=== PATIENT | female | born 1960 | race Caucasian/White ===

== ENCOUNTER 2020-07-07 08:54 | Outpatient (REF) | payer OTHER, SELFPAY ==
[2020-07-11 06:57] LABS: HPV mRNA E6/E7 rflx Not Detected (Not Detected)
== END 2020-07-07 08:55 | disposition home or self-care (01) ==
LOC: HO.LAB 08:54
PROVIDERS: Visit Provider Obstetrics & Gynecology
DX: Z01.419 Encounter for gynecological examination (general) (routine) without abnormal findings (principal); N84.1 Polyp of cervix uteri
CPT/HCPCS: 36415; 87624; 88142

== ENCOUNTER 2020-07-07 20:11 | Emergency (ER) | payer OTHER, SELFPAY ==
[2020-07-07 21:05] VITALS: BP 174/98; PULSE 84; RESP 18; TEMP 36.9; O2SAT 98; BMI 29.0
[2020-07-07 21:17] LABS: Eosinophils Absolute Auto 0.2 X10*3/uL (0.0-0.4); Eosinophils Percent Auto 1.6 % (0-4); Imm Gran Abs Auto 0.02 X10*3/uL (0.00-0.03); Imm Gran Pct Auto 0.2 % (0.0-0.4); MANUAL DIFF FLAG SCAN; Mean Corpuscular Hemoglobin 31.2 pg (27.0-33.0); Mean Corpuscular Volume 92.8 fL (80-98); PLT CLUMP 1; Red Cell Distribution Width 12.5 % (11.0-16.0); SCAN SMEAR FLAG 1
[2020-07-07 21:19] LABS: Basophils Absolute Auto 0.1 X10*3/uL (0.0-0.2); Basophils Percent Auto 1.3 % (0-2); Hemoglobin 13.8 g/dl (12.0-16.0); Lymphocytes Absolute Auto 3.2 X10*3/uL (1.2-4.9); Lymphocytes Percent Auto 29.9 % (20-40); Mean Corpuscular HGB Conc 33.7 g/dl (31.0-35.0); Monocytes Absolute Auto 0.8 X10*3/uL (0.1-1.2); Monocytes Percent Auto 7.8 % (2-11); Neutrophils Absolute Auto 6.2 X10*3/uL (2.0-8.3); Neutrophils Percent Auto 59.2 % (45-73); Red Blood Count 4.42 X10*6/uL (4.20-5.50); White Blood Count 10.5 X10*3/uL (4.8-10.8)
[2020-07-07 21:32] LABS: Glucose Urine UA NEG (NEG); Leukocyte Esterase Urine NEG (NEG); Nitrite Urine NEG (NEG); PH 5.5 (5.0-8.0); Specific Gravity - Urine 1.025 (1.005-1.025); Urine Blood 2+ (NEG); Urine Ketones NEG (NEG); Urine Protein NEG (NEG-TRACE)
[2020-07-07 21:34] LABS: Appearance Urine CLEAR; Color Urine YELLOW
[2020-07-07 21:42] LABS: Lipase 22 U/L (8-78)
[2020-07-07 21:42] LABS: Bacteria Urine TRACE /LPF; Squamous Epithelial Cell Urine TRACE /LPF; WBC Urine 0-2 /HPF (0-4)
[2020-07-07 22:18] LABS: SLIDE REVIEW VERIFIED
[2020-07-07 23:34] VITALS: BP 173/75; PULSE 84; RESP 16; O2SAT 98
--- NOTE | 2020-07-08 02:02 | CT_ITS ---
EXAMINATION: CT ABDOMEN AND PELVIS WITHOUT CONTRAST CLINICAL INFORMATION: Right lower/right flank pain COMPARISON: None TECHNIQUE: Multidetector volumetric imaging was performed from the superior aspect of the liver through the pubic symphysis. Sagittal and coronal reformatted images were obtained on the technologist's workstation. This CT examination was performed using dose optimization techniques as appropriate, variously including the following: *Automated exposure control *Adjustment of mA and/or kV according to patient size (this includes techniques or standardized protocols for targeted exams where dose is matched to indication/reason for exam; i.e. extremities or head) *Use of iterative reconstruction technique DLP: 738 mGy-cm FINDINGS: LUNG BASES: Subsegmental atelectasis noted in the lingula. LIVER, GALLBLADDER, AND BILIARY TREE: The liver is normal in size, shape, and attenuation. No focal hepatic lesion or biliary ductal dilatation is present. The gallbladder is unremarkable with no evidence of radiopaque gallstones, gallbladder wall thickening, or obvious pericholecystic inflammatory changes. PANCREAS: Unremarkable. SPLEEN: Unremarkable. ADRENAL GLANDS: Unremarkable. KIDNEYS AND URETERS: The kidneys are normal in size, shape, and attenuation. No hydronephrosis, hydroureter, or calculi seen. No perinephric stranding. BLADDER: Unremarkable. GASTROINTESTINAL TRACT: No evidence of bowel obstruction. There is prominent submucosal fat in the distal small bowel including the terminal ileum, which can be seen as sequelae of prior inflammation. No convincing findings of active bowel inflammation. Appendix appears collapsed. No free fluid or free air is seen. ABDOMINAL WALL: No significant hernia is appreciated. LYMPH NODES: Normal. VASCULAR: Unremarkable. PELVIC VISCERA: Unremarkable. OSSEOUS STRUCTURES: Degenerative changes are noted in the spine, including prominent facet arthropathy of the lumbar spine. CT/CT abdomen pelvis wo con IMPRESSION: 1. No acute findings identified in the abdomen/pelvis. 2. Prominent submucosal fat of the distal small bowel including the terminal ileum, which can be seen as sequelae of prior inflammation.
--- NOTE | 2020-07-08 02:04 | ED_ITS ---
HPI - Abdominal Pain General Chief Complaint: Abdominal Pain Stated Complaint: pelvic and flank pain Time Seen by Provider: 07/08/20 02:01 Source: patient Mode of arrival: ambulatory Limitations: no limitations History of Present Illness HPI narrative: 60-year-old female presented with 2 days of intermittent right a bdominal pain/right flank pain, pain progressively getting worse and more less more constant, pain is localized to the right lower area/right flank area, no other associated symptoms in particular no nausea, no vomiting, no fever, no chills, no dysuria, no urinary frequency, no diarrhea, no vaginal discharge or bleed. Patient describes pain as mild (5/10), nothing makes the pain worse or better, p atient never had that pain before. Related Data Allergies Allergy/AdvReac Type Severity Reaction Status Date / Time No Known Allergies Allergy Verified 07/07/20 09:30 Review of Systems Review of Systems All other systems are reviewed and are negative Constitutional: Reports as per HPI and Reports no additional constitutional complaints Eyes: Reports as per HPI and Reports no additional eye complaints Reports system reviewed and no additional complaints, except as documented Cardiovascular: Reports as per HPI and Reports no additional cardiovascular complaints Respiratory: Reports as per HPI and Reports no additional respiratory complaints Gastrointestinal: Reports as per HPI and Reports no additional gastrointestinal complaints Genitourinary: Reports no additional female genitourinary complaints Musculoskeletal: Reports no additional musculoskeletal complaints Skin/Breast: Reports system reviewed and no additional complaints, except as docu Psychiatric: Reports no additional psychiatric complaints Endocrine: Reports no additional endocrine complaints Hematologic/Lymphatic: Reports no additional hematologic/lymphatic complaints Allergic/Immunologic: Reports no additional allergic/immunologic complaints Reports system reviewed and no additional complaints, except as documented and Reports Abnormal speech present Physical Exam Vital Signs: Vital Signs: Last Vital Signs Temp 98.4 F 07/07/20 21:05 Pulse 84 07/07/20 23:34 Resp 16 07/07/20 23:34 BP 173/75 H 07/07/20 23:34 Pulse Ox 98 07/07/20 23:34 Body Mass Index 29.0 Vital signs have been reviewed as normal and appeared to be correct. Blood pressure in the high range. Heart rate normal. Respiration rate normal. Temperature normal. Oxygen saturation normal. Appearance: Alert. Oriented X3. No acute distress. Head: Normal external exam. Normocephalic. Atraumatic. No Ca signs noted. No raccoon eyes noted Eyes: PERRLA. EOMI. Conjunctiva and sclera normal. Eyelids normal. ENT: EAC normal. TM's Normal. Pharynx normal. Uvula midline. Moist mucous membranes. No trismus noted. No drooling noted. No muffled voice noted. Neck: Normal inspection. Neck supple. FROM. No adenopathy. Thyroid Normal. No meningeal signs. No neck mass noted. CVS: Normal heart rate and rhythm. Heart sound normal. No murmurs noted. Pulses normal throughout. Respiratory: No respiratory distress. Painless inspiration. Breath sounds normal. No wheezes/rales/rhonchi noted. Chest nontender. No accessory muscle usage noted or decreased air movement noted. Abdomen: Soft, mild right lower quadrant abdominal tenderness, no rebound, no guarding.. Bowel sounds normal in all 4 quadrants. No distention noted. No organomegaly noted. No visible injury noted. Back: Right CVA mild tenderness. Full range of motion noted. Skin: Skin warm and dry. Normal skin color. Normal skin turgor. No rashes/lesions/lacerations noted. Extremities: No lower extremity edema. Extremities exhibit normal range of motion. Extremities nontender. Neuro: Oriented X 3. No motor deficit. No sensory deficit. Reflexes normal. Course Course Course Narrative: Assessment and plan. 60-year-old female presented with few days of right-sided/slight flank pain, patient had a CT of the abdomen pelvis which showed no acute intra-abdominal pathology to explain patient's symptoms. Patient was instructed to drink plenty of fluids, and take NSAIDs p.r.n. pain. And seek medical attention if symptoms gotten worse otherwise follow-up with her PCP. MDM - Abdominal Pain Lab Data Result diagrams: 07/07/20 21:09 Labs: Lab Results 07/07/20 07/07/20 07/07/20 Range/Units 21:09 21:09 21:09 WBC 10.5 (4.8-10.8) X10*3/uL RBC 4.42 (4.20-5.50) X10*6/uL Hgb 13.8 (12.0-16.0) g/dl Hct 41.0 (37-47) % MCV 92.8 (80-98) fL MCH 31.2 (27.0-33.0) pg MCHC 33.7 (31.0-35.0) g/dl RDW 12.5 (11.0-16.0) % Plt Count Not Reportable MPV Not Reportable Immature Gran % (Auto) 0.2 (0.0-0.4) % Neut % (Auto) 59.2 (45-73) % Lymph % (Auto) 29.9 (20-40) % [place] % (Auto) 7.8 (2-11) % Eos % (Auto) 1.6 (0-4) % Baso % (Auto) 1.3 (0-2) % Lymph # (Auto) 3.2 (1.2-4.9) X10*3/uL [place] # (Auto) 0.8 (0.1-1.2) X10*3/uL Eos # (Auto) 0.2 (0.0-0.4) X10*3/uL Baso # (Auto) 0.1 (0.0-0.2) X10*3/uL Abs Immat Gran (auto) 0.02 (0.00-0.03) X10*3/uL Absolute Neuts (auto) 6.2 (2.0-8.3) X10*3/uL Absolute Nucleated RBC 0.000 (0.0-0.012) X10*3/uL Nucleated RBC % (auto) 0.0 (0.0-0.2) /100WBC Smear Tech's Comments VERIFIED Hold Blue Top SEE NOTE Lipase 22 (8-78) U/L Urine Color Urine Appearance Urine pH (5.0-8.0) Ur Specific [place] (1.005-1.025) Urine Protein (NEG-TRACE) MG/DL Urine Glucose (UA) (NEG) MG/DL Urine Ketones (NEG) MG/DL Urine Blood (NEG) Urine Nitrite (NEG) Ur Leukocyte Esterase (NEG) Urine RBC (0) /HPF Urine WBC (0-4) /HPF Ur Squamous Epith Cells /LPF Urine Bacteria /LPF 07/07/20 Range/Units 21:19 WBC (4.8-10.8) X10*3/uL RBC (4.20-5.50) X10*6/uL Hgb (12.0-16.0) g/dl Hct (37-47) % MCV (80-98) fL MCH (27.0-33.0) pg MCHC (31.0-35.0) g/dl RDW (11.0-16.0) % Plt Count MPV Immature Gran % (Auto) (0.0-0.4) % Neut % (Auto) (45-73) % Lymph % (Auto) (20-40) % [place] % (Auto) (2-11) % Eos % (Auto) (0-4) % Baso % (Auto) (0-2) % Lymph # (Auto) (1.2-4.9) X10*3/uL [place] # (Auto) (0.1-1.2) X10*3/uL Eos # (Auto) (0.0-0.4) X10*3/uL Baso # (Auto) (0.0-0.2) X10*3/uL Abs Immat Gran (auto) (0.00-0.03) X10*3/uL Absolute Neuts (auto) (2.0-8.3) X10*3/uL Absolute Nucleated RBC (0.0-0.012) X10*3/uL Nucleated RBC % (auto) (0.0-0.2) /100WBC Smear Tech's Comments Hold Blue Top Lipase (8-78) U/L Urine Color YELLOW Urine Appearance CLEAR Urine pH 5.5 (5.0-8.0) Ur Specific [place] 1.025 (1.005-1.025) Urine Protein NEG (NEG-TRACE) MG/DL Urine Glucose (UA) NEG (NEG) MG/DL Urine Ketones NEG (NEG) MG/DL Urine Blood 2+ H (NEG) Urine Nitrite NEG (NEG) Ur Leukocyte Esterase NEG (NEG) Urine RBC 1-4 (0) /HPF Urine WBC 0-2 (0-4) /HPF Ur Squamous Epith Cells TRACE /LPF Urine Bacteria TRACE /LPF Imaging Data CT scan - abdomen: Radiologist's impression: 1. No acute findings identified in the abdomen /pelvis. 2. Prominent submucosal fat of the distal small bowel including the terminal ileum, which can be seen as sequelae of prior inflammation. Discharge Plan Discharge Clinical Impression: Abdominal pain Qualifiers: Abdominal location: unspecified location Qualified Code(s): R10.9 - Unspecified abdominal pain Patient Disposition: Home, Self-Care Instructions: Abdominal Pain (ED) Referrals: Physician,None [Primary Care Provider] - 2 days PMFSH Past Medical History Surgical History H/O knee surgery S/P LEEP (status post loop electrosurgical excision procedure) Family History Family History Mother Alzheimer disease Social History Social History Alcohol intake: never Smoking Status: Former smoker Advance Directives: No Advance Directives Information Provided: No
[2020-07-08] MEDS: 0.9 % Sodium Chloride 1,000 ML 999 ML IVCONT (02:13)
[2020-07-08] MEDS: Ketorolac Tromethamine 15 MG/ML VIAL IV (02:13)
--- NOTE | 2020-07-08 02:15 | PC.NURSE ---
Pt found sitting upright in bed, CAOx4, speaking full sentences, reporting 7/10 pain to RLQ radiating into back for approx 24-48 hours, reports one episode of diarrhea this morning, denies N/V/fever. Pt also denies urinary symptoms. IV established, IVF hung, pt medicated with Toradol for 7/10 pain to RLQ. Aware of plan to CT abdomen, call sanchez within reach, continue to monitor.
--- NOTE | 2020-07-08 03:17 | PC.NURSE ---
Pt returns from CT, reports some relief of pain, states pain decreased to a 4/10. Awaiting CT results.
--- NOTE | 2020-07-08 04:18 | PC.NURSE ---
DC VS: 130/74, HR 76, RR 16, RA SAT 96% Pt provided with DC paperwork, IV removed. Pt calling for a ride home.
== END 2020-07-08 04:18 | disposition home or self-care (01) ==
PROVIDERS: Emergency Medicine Emergency Medical Services; Emergency Provider Emergency Medicine
DX: R10.9 Unspecified abdominal pain (principal)
CPT/HCPCS: 36415; 74176; 81001; 83690; 85025; 96361; 96374; 99283; 99284; J1885

== ENCOUNTER → 2020-08-05 08:48 | Outpatient (BNVA) | payer OTHER, SELFPAY | PROVIDERS: Visit Provider Obstetrics & Gynecology ==

== ENCOUNTER 2020-08-08 12:21 | Day surgery (SDC) | payer OTHER, SELFPAY ==
[2020-08-04 12:42] VITALS: BMI 29.0
--- NOTE | 2020-08-06 12:33 | HO.ANESPROP2 ---
Documented by User: Martina Barth 08/06/20 12:35 HPI - Anesthesia Eval Consult details Narrative: 60yo F for D&C Hysteroscopy PMFSH Active Problems Active Problems: All Active Problems (Updated 08/04/20 @ 12:41 by Peggy Duncan) Well woman exam (Acute) Cervical polyp (Acute) Past Medical History Medical History PONV (postoperative nausea and vomiting) Family History Family History Mother Alzheimer disease Surgical History Surgical History Hx of arthroscopy of knee S/P LEEP (status post loop electrosurgical excision procedure) Social History Social History Alcohol intake: never Smoking Status: Former smoker Smoking Quit Date: 06/2019 Use of substances other than those prescribed or required for medical reasons: No Advance Directives: No Advance Directives Information Provided: No Advance Directives on File: No Meds Allergies Allergy/AdvReac Type Severity Reaction Status Date / Time No Known Allergies Allergy Verified 08/04/20 12:41 Exam Exam Date and Time: August 06, 2020 1233 Height,Weight and Vital Signs: Height 5 ft 6 in Weight 81.647 kg Pertinent Lab Results Pertinent Lab Results: Laboratory Tests 07/07/20 21:09 WBC 10.5 Hgb 13.8 Hct 41.0 Plt Count Not Reportable Assessment and Plan Assessment Anesthesia Assessment: Chart Reviewed Documented by User: Vinay Perla 08/08/20 14:54 PMFSH Past Medical History Medical History PONV (postoperative nausea and vomiting) Family History Family History Mother Alzheimer disease Surgical History Surgical History Hx of arthroscopy of knee S/P LEEP (status post loop electrosurgical excision procedure) Social History Social History Alcohol intake: never Smoking Status: Former smoker Smoking Quit Date: 06/2019 Use of substances other than those prescribed or required for medical reasons: No Advance Directives: No Advance Directives Information Provided: No Advance Directives on File: No Meds Allergies Allergy/AdvReac Type Severity Reaction Status Date / Time No Known Allergies Allergy Verified 08/04/20 12:41 Exam Airway Mallampati Class: II TM Dist: >3cm Neck ROM: Full Denture: Upper and Lower Heart: [id number] Lungs: cta b/l Assessment and Plan Assessment Anesthesia Assessment: Anesthesia Plan Discussed, PAT Visit and Chart Reviewed Final Anesthetic Review NPO: Yes ASA Class: II Final Preanesthetic Review: No Changes in Pt Med Stat, Meds/Allgs Chart Reviewed, Consent Obtained/Reviewed and Anes Risks/Benef Reviewed Patient Risk: Low Procedure Risk: Low Assessment/Block/Sedation in SS: Assess/Block/Sedation-SS Anesthetic Plan Anesthetic Plan: GA and Agree w/ Assess. and Plan Disposition: Standard PACU
[2020-08-08 13:25] VITALS: BP 136/76; PULSE 87; RESP 16; TEMP 36.4; O2SAT 99
--- NOTE | 2020-08-08 13:34 | MHC.SHP ---
Pre-Procedural Eval Section A The patient is an INPATIENT: No Changes since office visit: No Cold of Flu in the past 2 weeks, No New Medical Problems, No Changes in Medication and No Patient answered all questions The History & Physical has been completed within 30 days and I have reviewed it.: Yes Section B Chief Complaint: Polyp of Cervix Allergies: Allergies Allergy/AdvReac Type Severity Reaction Status Date / Time No Known Allergies Allergy Verified 08/04/20 12:41 Plan Diagnosis/Plan: Unchanged I have reviewed the history and physical and performed a pertinent physical examination on my patient. No changes have occurred unless specified.
[2020-08-08] MEDS: Scopolamine 1.5 MG PATCH.TD.3 TRANSDERMA (13:51)
[2020-08-08] MEDS: Lactated Ringers 1,000 ML 100 ML IVCONT (14:09)
[2020-08-08 15:25] VITALS: BP 129/80; PULSE 75; RESP 16; O2SAT 96
--- NOTE | 2020-08-08 15:25 | PM.OP ---
Brief Operative Note Date of Service: 08/08/20 Pre-op diagnosis: Endocervical polyp Post-op diagnosis: same Procedure: Hysteroscopy D&C, Polypectomy Surgeon: Jai Wilkins MD Anesthesia: MAC Estimated blood loss (mL): 0 Pathology: other (Endometrial Scrapping. Polyp) Condition: stable Disposition: PACU
--- NOTE | 2020-08-08 15:27 | W.PM.OPN ---
Operative Note Operative Note Date of Service: 08/08/20 Narrative: Preop Diagnosis: Endocervical polyp Operation: Diagnostic Hysteroscopy, Dilataion & Curettage and polypectomy Post Op Diagnosis: Endocervical Polyp QBL: Minimal Anesthesia: MAC Surgeon: Jai Wilkins MD Learning Support Services Director: None Complication: None Pathology: Endometrial Scrapings, endocervical polyp Complication: None Pathology: Endometrial Scrapings, Endometrial polyp Procedure: The patient was put in the dorsal lithotomy position, scrubbed, and draped in the usual manner. A sterile speculum was inserted in the patient's vagina. The anterior lip of the cervix was grasped with a single tooth tenaculum. The cervix was dilated up to 5 mm, then the scope was inserted in the patient's uterus. Inspection revealed endocervical polyp at the ectocervix. Using LEEP electrode endocervical polyp was excised with partial endocervix ; this was done with no complications. At the end of the procedure, all instruments were taken out of the patient uterine and vaginal cavity. The single tooth tenaculum was removed and homeostasis was assured using pressure,. The patient tolerated the procedure well and was transferred to the PACU in a stable condition.
[2020-08-08 15:30] VITALS: BP 138/80; PULSE 74; RESP 16; O2SAT 96
[2020-08-08 15:35] VITALS: BP 136/73; PULSE 76; RESP 16; O2SAT 96
[2020-08-08 15:40] VITALS: BP 138/77; PULSE 74; RESP 16; O2SAT 97
[2020-08-08 15:55] VITALS: BP 142/60; PULSE 77; RESP 16; TEMP 36.1; O2SAT 97
== END 2020-08-08 17:00 ==
LOC: HO.SSS 12:21
PROVIDERS: Visit Provider Obstetrics & Gynecology
PROC: (CPT 58120; principal; 2020-08-08 15:10)
DX: N84.1 Polyp of cervix uteri (principal); Z87.891 Personal history of nicotine dependence
CPT/HCPCS: 58558; 88305; J1100; J1885; J2250; J2405; J3010

== ENCOUNTER → 2020-08-20 10:22 | Outpatient (BNVA) | payer OTHER, SELFPAY | PROVIDERS: Visit Provider Obstetrics & Gynecology ==

== ENCOUNTER → 2020-08-25 08:33 | Outpatient (BNVA) | payer OTHER, SELFPAY | PROVIDERS: Visit Provider Physician Assistant ==

== ENCOUNTER 2020-09-25 09:34 | Day surgery (SDC) | payer OTHER, SELFPAY ==
[2020-09-19 13:46] VITALS: BMI 29.0
--- NOTE | 2020-09-24 11:01 | HO.ANESPROP2 ---
HPI - Anesthesia Eval Consult details Narrative: 60yo F for Colonoscopy PMFSH Active Problems Active Problems: All Active Problems (Updated 08/25/20 @ 08:58 by Jenny Torres PA-C) Well woman exam (Acute) Cervical polyp (Acute) Encounter for screening colonoscopy (Acute) Past Medical History Medical History PONV (postoperative nausea and vomiting) Family History Family History Mother Alzheimer disease Surgical History Surgical History (Updated 09/19/20 @ 13:44 by Lanie Blankenship) Hx of arthroscopy of knee Hx of dilation and curettage S/P LEEP (status post loop electrosurgical excision procedure) Social History Social History (Updated 09/19/20 @ 13:45 by Lanie Blankenship) Household Members: Children Alcohol intake: never Smoking Status: Former smoker Smoking Quit Date: 2019 Use of substances other than those prescribed or required for medical reasons: No Have you been hit, kicked, punched, or otherwise hurt by someone within the past year? 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
[2020-09-25 10:03] VITALS: BP 150/82; PULSE 18; RESP 18; TEMP 35.9; O2SAT 99
[2020-09-25] MEDS: Lactated Ringers 1,000 ML 100 ML IVCONT (10:24)
--- NOTE | 2020-09-25 10:35 | P.OP_ITS ---
Operative Note Operative Note Date of Service: 09/25/20 Narrative: Pre-op diagnosis: Colon cancer screening Post-op diagnosis: other (Diverticulosis, hemorrhoids, submucosal nodules Transverse colon) Procedure: COLONOSCOPY TILL CECUM WITH BIOPSIES Consent: Indications for the procedure and potential complications of bleeding, perforation, reaction to medications and missed diagnosis were discussed with the patient and informed consent was obtained. Instrument: Olympus PCF H 190 L variable stiffness pediatric colonoscope Monitoring: Vital signs and clinical assessment, intermittent blood pressure monitoring, continuous EKG monitoring, Pulse oximetry and Carbon Dioxide monitoring were done throughout the procedure. Colon withdrawl time was 21 minutes. Procedure: The patient was placed in the left lateral decubitis position and pre-procedure medications were administered. After a digital rectal examination of the ano-rectum, the video colonoscope was inserted into the rectum and advanced through the colon to the cecum. The colonoscope was slowly withdrawn in a retrograde panoramic fashion and the colon mucosa was carefully examined including a retroflexed view of the rectum. Findings and interventions are described below. Procedure Difficulty: Colon was long and tortuous and there was Rican these formation. Patient was placed in the supine position and LLQ pressure was applied to intubate the ascending colon Findings: Terminal Ileum: Not evaluated Cecum: ? 7-8 mm polyp versus fold at the appendicular orifice - biopsies were obtained Ascending Colon: Normal Transverse Colon: A 5 cms yellowish benign appearing nodule in the distal transverse colon at 60 cm - multiple biopsies were obtained. Second similar appearing 2 cms nodule at 55 cm. Descending Colon: Moderate diverticulosis Sigmoid Colon: Severe diverticulosis with luminal narrowing Rectum: Normal Ano-rectum: Moderate internal hemorrhoids Colon preparation: Good after copious irrigation Impression and Post Procedure Diagnosis: Colonoscopy Findings: A 5 cms yellowish benign appearing nodule in the distal transverse colon at 60 cm - multiple biopsies were obtained. Second similar appearing 2 cms nodule at 55 cm. Likely submucosal lipomas No polyps were detected Moderate to severe diverticulosis seen in the left colon Moderate hemorrhoids on retroflexed exam. Plan: Await pathology results. If biopsies from submucosal nodule are normal, consider further evaluation with a CT scan. A letter will be sent with biopsy results. Repeat Colonoscopy interval based on path results - in 5 years. Above findings were reviewed with the patient and diverticulosis handout was given in the discharge area Surgeon: Cindy Toledo MD Anesthesia: MAC (Haily Hutton CRNA) Stockroom Keeper: Ann Lopez Estimated blood loss (mL): 0 Pathology: other (A- CECAL BIOPSIES- R/O POLYP B- MUCOSAL MASS 60CMS R/O SUBMUCOSAL LIPOMA) Condition: stable Disposition: PACU
--- NOTE | 2020-09-25 10:35 | MHC.SHP ---
Pre-Procedural Eval Section A The History & Physical has been completed within 30 days and I have reviewed it.: No Section B Chief Complaint: Screening Details of Present Illness: Colon cancer screening Relevant Family History (Specify if Yes): No Relevant Social History: Tobacco Use (quitted 1 yr ago) Present Medications: see Short Stay Collaborative assessment Medical History: Significant History (Postoperative nausea and vomiting,) History of Previous Operations: Relevant previous surgery/procedure and date(s) (Hx of arthroscopy of knee Hx of dilation and curettage S/P LEEP (status post loop electrosurgical excision procedure)) Allergies: Allergies Allergy/AdvReac Type Severity Reaction Status Date / Time No Known Allergies Allergy Verified 08/25/20 08:33 Review of Systems Sugical H&P ROS: Negative: Constitution, Cardiovascular, Respiratory and Gastrointestinal Exam Surgical H&P Exam: Normal: Heart, Normal: Lungs, Normal: Extremities and Normal: Abdomen Plan Diagnosis/Plan: Unchanged I have reviewed the history and physical and performed a pertinent physical examination on my patient. No changes have occurred unless specified.
[2020-09-25 11:31] VITALS: BP 128/71; PULSE 74; RESP 18; TEMP 37.7; O2SAT 100
[2020-09-25 11:46] VITALS: BP 135/79; PULSE 80; RESP 18; TEMP 37.2; O2SAT 100
== END 2020-09-25 12:26 | disposition home or self-care (01) ==
PROVIDERS: Visit Provider Internal Medicine Gastroenterology
PROC: 0DJD8ZZ Inspection of Lower Intestinal Tract, Via Natural or Artificial Opening Endoscopic (ICD-10-PCS; CPT 45378; principal; 2020-09-25 10:40)
DX: Z12.11 Encounter for screening for malignant neoplasm of colon (principal); K57.30 Diverticulosis of large intestine without perforation or abscess without bleeding; K64.8 Other hemorrhoids; K63.89 Other specified diseases of intestine; Z87.891 Personal history of nicotine dependence
CPT/HCPCS: 45380; 88305

== ENCOUNTER 2020-10-16 15:41 | Emergency (ER) | payer OTHER, SELFPAY ==
--- NOTE | ~2020-10-16 | XR_ITS ---
EXAMINATION: XR HIP, RIGHT CLINICAL INFORMATION: Trauma with right hip pain COMPARISON: CT abdomen pelvis 07/08/2020 TECHNIQUE: 2 views pelvis with 2 additional views right hip . FINDINGS: There is a comminuted fracture involving the superior pubic ramus as well as the inferior pubic ramus on the right that were not present at the time of the 07/08/2020 CT scan. The hip joint is unremarkable without fracture seen. XR/XR hip RT min 2V IMPRESSION: Pubic rami fracture on the right. These could be acute but also could be somewhat subacute occurring sometime between 07/08/2020 and today. Please correlate clinically
[2020-10-16 15:51] VITALS: BP 118/78; PULSE 88; O2SAT 100
[2020-10-16 15:56] VITALS: BP 144/70; PULSE 91; RESP 18; TEMP 36.3; O2SAT 99; BMI 30.7
--- NOTE | 2020-10-16 16:00 | ED.GENADULT ---
HPI - General Adult General Chief complaint: Fall Stated complaint: RT HIP PAIN S/P FALL Time Seen by Provider: 10/16/20 15:58 Source: patient Limitations: no limitations History of Present Illness HPI narrative: Patient complaining of right hip pain. Patient states she was at work and working in a manic and when she fell off to her right landing on her right hip. Patient states pain is 10/10 and she has decreased ability to move her right hip. Patient denies past medical history takes no current medications. Patient states she quit smoking greater than 1 year ago. Patient did not hit her head or CT has no complaints of other pain at this time. Symptoms are moderate. Related Data Previous Rx's Medication Instructions Recorded tramadol 50 mg PO Q8H PRN #20 tab 10/16/20 Allergies Allergy/AdvReac Type Severity Reaction Status Date / Time No Known Allergies Allergy Verified 08/25/20 08:33 Review of Systems Review of Systems: Constitutional : No fever chills. Eyes: No Eye Pain, No Swelling, No Redness, No Foreign Body, No Discharge, No Vision Changes Cardiovascular : No Chest Pain, No SOB Respiratory : No Cough, No Sputum Gastrointestinal : No Nausea, No Vomiting Musculoskeletal : Positive right hip pain Neuro : No Weakness, No Numbness, No Paresthesias, No Loss of Consciousness, No Dizziness, No Headache Psych : No Anxiety/Panic, No Depression, No SI/HI/AH/VH, No Social Issues, Heme/Lymph: No Bruising, No Bleeding,No Lymphadenopathy [facility] Past Medical History Attestation statement: The following information was validated with the patient. 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 Blood pressure normal. Heart rate normal. Respiration rate normal. Temperature normal. Oxygen saturation normal. Appearance: Alert. Oriented X3. No acute distress. Head: Normal external exam. Normocephalic. Atraumatic. No Ca signs noted. No raccoon eyes noted Eyes: PERRLA. EOMI. ENT: Pharynx normal. Neck: Soft full range of motion, no JVD CVS: Heart regular rate and rhythm no murmurs and rubs Respiratory: Breath sounds are clear to auscultation bilaterally. No accessory muscle use noted. Abdomen: Soft nontender no rebound or guarding positive bowel sounds Back: No CVA tenderness. Full range of motion noted. Skin: Skin warm and dry. Normal skin color. Extremities: Diffuse right hip tenderness extremity did not appear rotated shortened at this time Neuro: Oriented X 3. No motor deficit. No sensory deficit. Reflexes normal. Course Course Course Narrative: Right hip pain after fall x-ray is pending at this time Patient able to walk with a walker at this time plan to discharge patient home follow-up with Orthopedics and potentially outpatient physical therapy. Medical Decision Making Imaging Data right hip: Radiologist's impression: [address] [id number] ReportSigned Patient: Lobo Jiang#: [id number]: [id number]:[id number]/Sex: 60 / FADM Date: 10/16/20Loc: EDAttending Dr: Ordering Physician: Micah Gamez Date of Service: 10/16/20 Procedure(s): XR hip RT min 2V Accession Number(s): [id number] cc: Micah Gamez ~ EXAMINATION: XR HIP, RIGHT CLINICAL INFORMATION: Trauma with right hip pain COMPARISON: CT abdomen pelvis 07/08/2020 TECHNIQUE: 2 views pelvis with 2 additional views right hip . FINDINGS: There is a comminuted fracture involving the superior pubic ramus as well as the inferior pubic ramus on the right that were not present at the time of the 07/08/2020 CT scan. The hip joint is unremarkable without fracture seen. XR/XR hip RT min 2V IMPRESSION: Pubic rami fracture on the right. These could be acute but also could be somewhat subacute occurring sometime between 07/08/2020 and today. Please correlate clinically Dictated By:SORAYA FLORES MDSigned By:<Electronically signed by SORAYA FLORES MD in OV>10/16/20 1704 Discharge Plan Discharge Clinical Impression: Fracture of left superior pubic ramus Patient Disposition: Home, Self-Care Instructions: Pelvic Fracture (ED) Additional Instructions: Use walker when ambulating Rest leg Tylenol Motrin [id number] for pain Tramadol for severe pain Prescriptions: New tramadol 50 mg tablet 50 mg PO Q8H PRN (Reason: pain) Qty: 20 RF: 0 Referrals: Derek Villatoro MD [Physician] - 2 days
[2020-10-16] MEDS: traMADoL HCL 50 MG TABLET PO (16:38)
--- NOTE | 2020-10-16 18:00 | PC.NURSE ---
PT GIVEN WALKER. PT ABLE TO AMBULATE USING WALKER USING TOE TOUCH WEIGHT BEARING. PT BECAME NAUSEATED. MED WITH [facility] FOR NAUSEA. WAITING FOR MED TO WORK.
[2020-10-16 18:01] VITALS: BP 103/63; PULSE 84; RESP 14; TEMP 37.1; O2SAT 96
== END 2020-10-16 18:18 | disposition home or self-care (01) ==
PROVIDERS: Emergency Provider Internal Medicine
DX: S32.511A Fracture of superior rim of right pubis, initial encounter for closed fracture (principal); M25.551 Pain in right hip; W01.0XXA Fall on same level from slipping, tripping and stumbling without subsequent striking against object, initial encounter; Y93.9 Activity, unspecified; Y92.9 Unspecified place or not applicable; Y99.0 Civilian activity done for income or pay; Z87.891 Personal history of nicotine dependence; Z79.899 Other long term (current) drug therapy
CPT/HCPCS: 73502; 99284

== ENCOUNTER 2020-10-27 10:43 | Outpatient (REF) | payer OTHER, SELFPAY ==
--- NOTE | ~2020-10-27 | XR_ITS ---
EXAMINATION: XR PELVIS CLINICAL INFORMATION: Right pubic ramus fracture. COMPARISON: Pelvic radiographs 10/16/2020, CT pelvis 07/08/2020 TECHNIQUE: AP view of the pelvis. FINDINGS: There are fractures again noted right superior and inferior pubic rami similar in alignment to prior radiograph 10/16/2020. There is no destructive process. No new fracture demonstrated. No diastases SI joints or pubis. There are degenerative changes lower lumbar spine. Bowel gas unremarkable. XR/XR pelvis 1-2V IMPRESSION: Right superior and right inferior pubic rami fractures unchanged in alignment from recent exam 10/16/2020.
== END 2020-10-27 10:44 | disposition home or self-care (01) ==
LOC: HO.HOSX 10:43
PROVIDERS: Visit Provider Physician Assistant
DX: S32.591K Other specified fracture of right pubis, subsequent encounter for fracture with nonunion (principal)
CPT/HCPCS: 72170; 99202

== ENCOUNTER 2020-11-24 10:32 | Outpatient (REF) | payer OTHER, SELFPAY ==
--- NOTE | ~2020-11-24 | XR_ITS ---
EXAMINATION: XR PELVIS CLINICAL INFORMATION: Fracture right pubic rami. COMPARISON: Pelvic radiograph 10/27/2020, right hip radiographs 10/16/2020, CT pelvis 07/08/2020. TECHNIQUE: AP view of the pelvis. FINDINGS: There are fractures right superior and inferior pubic rami similar in alignment to prior studies. There is no diastases pubis or SI joints. No acute fracture or destructive process. There are degenerative changes again suggested lumbosacral junction. XR/XR pelvis 1-2V IMPRESSION: Right pubic rami fractures similar in alignment to prior studies.
== END 2020-11-24 10:33 | disposition home or self-care (01) ==
LOC: HO.HOSX 10:32
PROVIDERS: Visit Provider Physician Assistant
DX: S32.511A Fracture of superior rim of right pubis, initial encounter for closed fracture (principal)
CPT/HCPCS: 72170; 99212

== ENCOUNTER 2021-01-05 07:40 | Outpatient (REF) | payer OTHER, SELFPAY ==
--- NOTE | ~2021-01-05 | XR_ITS ---
EXAMINATION: XR PELVIS CLINICAL INFORMATION: Pubic ramus fracture follow-up COMPARISON: 10/27/2020 and 11/24/2020 TECHNIQUE: AP view of the pelvis. FINDINGS: The alignment is maintained at the pubic symphysis, hips and sacroiliac joints. The joint space of each hip is well-preserved Again noted are mildly displaced fractures of the right superior and inferior pubic rami. On this single AP view, no significant residual fracture lucency is identified at the inferior ramus. There is residual fracture lucency in the superior ramus, but there is also increasing sclerosis, indicative of healing reaction. XR/XR pelvis 1-2V IMPRESSION: There are healing, mildly displaced fractures of the right pubic rami. No new osseous injury.
== END 2021-01-05 07:41 | disposition home or self-care (01) ==
LOC: HO.HOSX 07:40
PROVIDERS: Visit Provider Physician Assistant
DX: S32.511A Fracture of superior rim of right pubis, initial encounter for closed fracture (principal); S32.591K Other specified fracture of right pubis, subsequent encounter for fracture with nonunion
CPT/HCPCS: 72170; 99212

== ENCOUNTER 2021-02-17 07:57 | Outpatient (REF) | payer OTHER, SELFPAY ==
--- NOTE | ~2021-02-17 | XR_ITS ---
EXAMINATION: XR PELVIS CLINICAL INFORMATION: Fracture. COMPARISON: Most recent pelvic radiographs dated 01/05/2021. TECHNIQUE: AP view of the pelvis. FINDINGS: Healing fractures redemonstrated within the superior and inferior right pubic rami in unchanged anatomic alignment. Interval new bone/callus formation. No acute fracture or dislocation. No new lytic or blastic osseous lesion. XR/XR pelvis 1-2V IMPRESSION: Healing right superior and inferior pubic rami fractures in unchanged anatomic alignment with interval new bone/callus formation.
== END 2021-02-17 07:58 | disposition home or self-care (01) ==
LOC: HO.HOSX 07:57
PROVIDERS: Visit Provider Physician Assistant
DX: S32.511D Fracture of superior rim of right pubis, subsequent encounter for fracture with routine healing (principal)
CPT/HCPCS: 72170; 99212

== ENCOUNTER 2021-02-26 10:00 | Outpatient (RCR) | payer OTHER, SELFPAY ==
--- NOTE | 2021-01-22 13:07 | MHC.PT.EP ---
[facility] [employer] Office [place] Office [place] Office [address] Juan Antonio Macario [address] [phone] F: [phone] F: [phone] F: [phone] F: [phone] Physical Therapy Plan of Care Date of Evaluation: Date of Surgery: none Diagnosis: fracture of the superior pelvic ring Assessment: The patient has point tenderness or adductor insertion at the proximal insertion. The patient has pain with trunk extension likely due to stabilization needed in the pelvis during this motion. The patient denies any bowel or bladder issues. No pelvic pain noted other than groin pain. Pt had a right on left sacral torsion noted, and a left anterior illeum innominant. However I will not do any MET at this time for the innominant due to a recent pelvic fracture and still unhealed at this point. I will do gentle ROM, and pelvic stability exercises in order to restore normal motion in this region. At some point if pain is unresolved I may assess tissue tension internally of the levator ani. She is an excellent candidate for skilled PT Frequency and Duration: The patient will be seen 1x/week x 4 weeks Short Term Goals: 1. Pt to demonstrate initial HEP to improve compliance and carryover. 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 Pt to be pain free with all functional movements such as sit stand, bend, lifting. 2. Pt to return to community ambulation distances without pain. 3. Pt to be able to stand for greater than 1 hour without exacerbation of pain to help return to work. Treatment Plan: Modalities to reduce pain, spasms and effusion. Manual therapy to restore motion and function. Therapeutic exercise to improve strength and flexibility. Neuromuscular re-education for posture and balance. Therapeutic activities to return to functional activities of daily living. Electronically signed by: Willa Saul PT DPT Please sign and return to therapist. Thank you for your referral.
--- NOTE | 2021-02-26 13:03 | MHC.PT.DC ---
[facility] [place] Office [place] Office [place] Office [address] Juan Antonio Macario [address] [phone] F: [phone] F: [phone] F: [phone] F: [phone] Physical Therapy Discharge Report Diagnosis: fracture of the superior pelvic ring Date of Surgery: none Date of Evaluation: 01/22/21 Date of Discharge: Treatments to Date: 4 Cancellations to Date: No Shows to Date: Discharge Status: Achieved Goals Improved Function Independent with HEP Discharge Summary: The patient has been compliant with HEP. She showed improved ankle reactive strategies. She is independent with her exercises. She is progressing to PLOF. She returns to work this week. She is currently reporting independence with HEP. PT given theraband and written instructions. Pt d/c today. Electronically signed by: Willa Saul PT DPT Please sign and return to therapist. Thank you for your referral.
== END 2021-02-26 11:00 | disposition home or self-care (01) ==
LOC: HO.PT 10:00
PROVIDERS: Visit Provider Physician Assistant
DX: S32.511A Fracture of superior rim of right pubis, initial encounter for closed fracture (principal); S32.591K Other specified fracture of right pubis, subsequent encounter for fracture with nonunion
CPT/HCPCS: 97110; 97112; 97162

== ENCOUNTER 2023-05-04 08:39 | Outpatient (AMB) | payer OTHER, SELFPAY ==
--- NOTE | 2023-05-04 08:55 | MHC.OFFWIV ---
Intake Vital Signs 05/04/23 08:59 Height 5 ft 6 in Weight 195 lb BMI 31.5 BP 140/78 H Blood Pressure Location Rt brachial Position Sitting Respiration 13 Pulse 59 Pulse Source Pulse Oximeter Temp 98.3 F Temp Source Oral Pulse Oximetry (%) 100 Oxygen Delivery Method Room Air Intake Visit Reasons: ? UTI Intake Note: Patient is here for uti symptoms x2 day. Symptoms include pain when urinating, urgency and abdominal discomfort. Patient Tobacco Use Status: Never used Tobacco Skilled Labor Required: No Accompanied by: Self / Same As Patient Allergies No Known Allergies Allergy (Verified 05/04/23 09:21) Do you need a note to return to daycare/school/sports/work: No HPI HPI Comments History of Present Illness Details Here today with urinary complaints Started 2 days ago : Dysuria, incomplete bladder emptying and mild lower abd pain. Denies rash, vaginal discharge, fever, chills Tolerating po intake Not sexually active No regular f/u with CLINICAL PSYCHOLOGIST LICENSED Last UTI 03/2022 tx w/ bactrim successfully. Does have incidence of yeast infection s/p AB therapy PFSH Medical History PONV (postoperative nausea and vomiting) Surgical History Hx of arthroscopy of knee Hx of dilation and curettage S/P LEEP (status post loop electrosurgical excision procedure) Family History Mother Alzheimer disease Household Members: Children Alcohol intake: never Patient Tobacco Use Status: Never used Tobacco Current occupational status: employed Current occupation: [employer], rt handed Female Reproductive History Menstrual Age of Menarche: 11 Review of Systems Const All systems reviewed & are unremarkable except as noted in HPI and below Physical Exam Vital Signs: Last Vital Signs Temp 98.3 F 05/04/23 08:59 Pulse 59 05/04/23 08:59 Resp 13 05/04/23 08:59 BP 140/78 H 05/04/23 08:59 Pulse Ox 100 05/04/23 08:59 Oxygen Delivery Method Room Air 05/04/23 08:59 BMI result Body Mass Index 31.5 Const Other: Awake alert NAD SPeaking in full sentences MMM RRR No CVAT No suprapubic tenderness Results AMB Urinalysis Dipstick UR Leukocytes Trace Last Edit by Hermelinda Ybarra CMA on 05/04/23 09:14 UR Nitrite Negative Last Edit by Hermelinda Ybarra, PEYTON on 05/04/23 09:14 UR Urobilinogen Normal Last Edit by Hermelinda Ybarra CMA on 05/04/23 09:14 UR Protein Negative Last Edit by Hermelinda Ybarra CMA on 05/04/23 09:14 UR Ph 6.0 Last Edit by Hermelinda Ybarra, PEYTON on 05/04/23 09:14 UR Blood Small Last Edit by Hermelinda Ybarra, PEYTON on 05/04/23 09:14 UR Specific [place] 1.015 Last Edit by Hermelinda Ybarra CMA on 05/04/23 09:14 UR Ketone Negative Last Edit by Hermelinda Ybarra CMA on 05/04/23 09:14 UR Bilirubin Negative Last Edit by Hermelinda Ybarra CMA on 05/04/23 09:14 UR Glucose Negative Last Edit by Hermelinda Ybarra CMA on 05/04/23 09:14 Results Reviewed Results Reviewed: Laboratory Last Values Urine pH (Clinic) 6.0 05/04/23 08:59 Specific Sturgeon (Clinic) 1.015 05/04/23 08:59 Ur Protein (Clinic) Negative 05/04/23 08:59 Ur Ketones (Clinic) Negative 05/04/23 08:59 Urine Blood (Clinic) Small 05/04/23 08:59 Urine Nitrite Negative 05/04/23 08:59 Urine Bilirubin (Clinic) Negative 05/04/23 08:59 Urobilinogen (Clinic) Normal 05/04/23 08:59 Leukocyte Esterase (Clinic) Trace 05/04/23 08:59 Urine Glucose (Clinic) Negative 05/04/23 08:59 Assessment & Plan Assessment & Plan (1) Urinary tract infection: Code(s): N39.0 - Urinary tract infection, site not specified Qualifiers: Urinary tract infection type: acute cystitis Hematuria presence: without hematuria Qualified Code(s): N30.00 - Acute cystitis without hematuria (2) Yeast infection involving the vagina and surrounding area: Code(s): B37.31 - Acute candidiasis of vulva and vagina Orders: Orders AMB Urinalysis Dipstick Today Z13.9 - Encounter for screening, unspecified Medications: Changed From fluconazole (Diflucan) 150 mg PO Q3D 2 doses 2 tabs 0RF To fluconazole 150 mg PO Q3D 2 doses 2 tabs 0RF From sulfamethoxazole-trimethoprim 800-160 mg (Bactrim DS) 1 tab PO BID 5 days 10 tabs 0RF To sulfamethoxazole-trimethoprim 800-160 mg (Bactrim DS) 1 tab PO BID 3 days 6 tabs 0RF Patient Instructions: take ab as directed along w/ diflucan hydrate well vaginal hygeine if fever, chills, abd pain or worsening sx, return to office otherwise rec f/u with CLINICAL PSYCHOLOGIST LICENSED ??? estrogen therapy Coding Level of Care Code Est Pt Level 4 (05834) Diagnoses Acute cystitis without hematuria N30.00 Urinary tract infection type: acute cystitis Hematuria presence: without hematuria Yeast infection involving the vagina and surrounding area B37.31
[2023-05-04 08:59] VITALS: BP 140/78; PULSE 59; RESP 13; TEMP 36.8; O2SAT 100; BMI 31.5
== END 2023-05-04 09:44 | disposition home or self-care (01) ==
PROVIDERS: Visit Provider Nurse Practitioner Family
DX: N30.00 Acute cystitis without hematuria (principal); B37.31 Acute candidiasis of vulva and vagina; R30.0 Dysuria
CPT/HCPCS: 81002; 99214